=== PATIENT | female | born 1960 | race Caucasian/White ===

== ENCOUNTER 2024-04-29 16:45 | Emergency (ER) | payer OTHER, MEDICARE ==
--- OUTSIDE RECORDS SUMMARY | 2024-04-29 16:49 | XMS REPORT | Continuity of Care Document ---
Author Name Unknown Address [address] [facility] [address] [place] [address] [facility] Address [address] [facility] [address] [place] [address] Care Team Providers Care Network Contract Manager Name Role Phone Tomek_Dewayne Attending Clinician Unavailable MARIN GARAY Attending Clinician Unavailable DR ANIYA ROBLES Attending Clinician Unavailable Tomek_T Admitting Clinician Unavailable MARIN GARAY Admitting Clinician Unavailable DR ANIYA ROBLES Admitting Clinician Unavailable Payers Payer Name Policy Type Policy Number Effective Date Expirati on Date Source [facility] [id number] 2021 00:00:00 Allergies, Adverse Reactions, Alerts Allergy Name Allergy Type Status Severity Reaction(s) Onset Date Inactive Date Treating Clinician Comments Source morphine DA Active [place] 02-01 00:00: 00 [facility] codeine DA Active [place] 02-01 00:00: 00 [facility] Morphine DA Active Unknown [facility] Codeine Allergy to substanc e Active [facility] Morphine Allergy to substanc e [facility] Penicill in v Allergy to substanc e Active [facility] Codeine DA Active Unknown [facility] Penicill ins DA Active Unknown [facility] Social History Smoking Status Start Date Stop Date Source Former Smoker [facility] Medications Ordered Medication Name Filled Medication Name Start Date Stop Date Current Medication? Ordering Clinician Indication Dosage Frequency Signature (SIG) Comments Components Source Advil Advil No Advil [facility] ciprofloxac in 0.3 %-dexametha sone 0.1 % ear drops,suspe nsion INSTILL 4 DROPS INTO AFFECTED EAR(S) BY OTIC ROUTE 2 TIMES PER DAY FOR 7 DAYS ciprofloxac in 0.3 %-dexametha sone 0.1 % ear drops,suspe nsion INSTILL 4 DROPS INTO AFFECTED EAR(S) BY OTIC ROUTE 2 TIMES PER DAY FOR 7 DAYS No ciprofloxa gabi 0.3 %-dexameth asone 0.1 % ear drops,susp ension INSTILL 4 DROPS INTO AFFECTED EAR(S) BY OTIC ROUTE 2 TIMES PER DAY FOR 7 DAYS [facility] Claritin Claritin No Claritin [facility] amiodarone 200 mg tablet Take 1 tablet every day by oral route as directed for 30 days. amiodarone 200 mg tablet Take 1 tablet every day by oral route as directed for 30 days. No 1 Q1D amiodarone 200 mg tablet Take 1 tablet every day by oral route as directed for 30 days. [facility] Eliquis 5 mg tablet Take 1 tablet twice a day by oral route as directed for 30 days. Eliquis 5 mg tablet Take 1 tablet twice a day by oral route as directed for 30 days. No 1 BID Eliquis 5 mg tablet Take 1 tablet twice a day by oral route as directed for 30 days. [facility] omega-3 acid ethyl esters 1 gram capsule Take 1 capsule twice a day by oral route as directed for 30 days. omega-3 acid ethyl esters 1 gram capsule Take 1 capsule twice a day by oral route as directed for 30 days. No 1capsul e(s) BID omega-3 acid ethyl esters 1 gram capsule Take 1 capsule twice a day by oral route as directed for 30 days. [facility] Vital Signs Vital Name Observation Time Observation Value Comments Ioana rowan Body Weight 2024-01-07 00:00:00 2902 [oz_av] [facility] BP Diastolic 2024-01-07 00:00:00 89 mm[Hg] [facility] Height 2024-01-07 00:00:00 64 [in_i] [facility] BMI (Body Mass Index) 2024-01-07 00:00:00 31.1 kg/m2 [facility] BP Systolic 2024-01-07 00:00:00 147 mm[Hg] [facility] BMI (Body Mass Index) 2023-12-05 00:00:00 31.8 kg/m2 [facility] BP Systolic 2023-12-05 00:00:00 155 mm[Hg] [facility] Body Weight 2023-12-05 00:00:00 2968 [oz_av] [facility] BP Diastolic 2023-12-05 00:00:00 100 mm[Hg] [facility] Height 2023-12-05 00:00:00 64 [in_i] [facility] Weight 2022-01-08 15:50:00 66.67 KG Height 2022-01-08 15:50:00 160.02 CM Procedures Procedure Date / Time Performed Performing Clinicia n Source Cholecystectomy [facility] Delivery [facility] Plan of Care Planned Activity Planned Date Details Comments Source Diagnostic Test Pending 2023-12-05 00:00:00 lipid panel, serum [code = lipid panel, serum] [facility] Diagnostic Test Pending 2023-12-05 00:00:00 HbA1c (hemoglobin A1c), blood [code = HbA1c (hemoglobin A1c), blood] [facility] Diagnostic Test Pending 2023-12-05 00:00:00 urinalysis, complete [code = urinalysis, complete] [facility] Diagnostic Test Pending 2023-12-05 00:00:00 TSH + T4, serum [code = TSH + T4, serum] [facility] Diagnostic Test Pending 2023-12-05 00:00:00 CMP, serum or plasma [code = CMP, serum or plasma] [facility] Diagnostic Test Pending 2023-12-05 00:00:00 CBC w/ auto diff [code = CBC w/ auto diff] [facility] Encounters Start Date/Time End Date/Time Encounter Type Admission Type Attending [facility] Care Department Encounter ID Source 2024-02-06 00:00:00 2024-02-06 00:00:00 Outpatient Tomek_T [facility] [id number] [facility] 2024-01-25 00:00:00 2024-01-25 00:00:00 Outpatient Tomek_T [facility] MMG [id number] [facility] 2024-01-07 00:00:00 2024-01-07 00:00:00 Ke Greco MD: [address] [place] [address], [address], [place] [address] , Ph. G [facility] [id number] [facility] 2023-12-28 16:56:00 2023-12-29 11:19:00 observatio n encounter [facility] [id number] [facility] [id number] 2023-12-28 16:56:00 2023-12-29 11:19:00 Inpatient ER MARIN GARAY [facility] [id number] [facility] 2023-12-13 00:00:00 2023-12-13 00:00:00 Outpatient Tomek_T [facility]G MMG [id number] [facility] 2023-12-05 00:00:00 2023-12-05 00:00:00 Outpatient Tomek_T MMG MMG [id number] [facility] 2023-12-05 00:00:00 2023-12-05 00:00:00 LARON Lares: [address], [address], [place] [address] , Ph. [facility] [id number] [facility] 2022-01-08 15:42:00 2022-01-08 16:25:00 Outpatient Js ANIYA ROBLES [facility] [id number] [facility] Results Test Description Test Time Test Comments Results Result Co mments Source [facility] pres [facility] [id number] 09:44:00* Test Item Value Reference Range Interpretation Comme nts culture,urine (test code = culture,urine) early light growth, reincubation required. [facility]12 panel drug [id number] 07:40:00* Test Item Value Reference Range Interpretation Comme nts amphetamines screen urine (t est code = amphetamines screen urine) negative negative barbiturates, urine quant. ( test code = barbiturates, urine quant.) negative negative benzodiazepines screen urine (test code = benzodiazepines screen urine) negative negative cannabinoids (test code = cannabinoids) negative negative cocaine (test code = cocaine) negative negative opiates (test code = opiates) negative negative hydrocodone (test code = hydrocodone) negative negative fentanyl (test code = fentanyl) negative negative phencyclidine (test code = phencyclidine) negative negative methadone (test code = methadone) negative negative propoxyphene (test code = propoxyphene) negative negative oxycodone (test code = oxycodone) negative negative drug screen note (test code = drug screen note) . [facility],urine pres id [id number] 07:34:00* Test Item Value Reference Range Interpretation Comme nts culture,urine (test code = culture,urine) specimen has been received in lab and IS in progress. [facility] [id number] 07:31:00* Test Item Value Reference Range Interpretation Comme nts color, urine (test code = co marie, urine) light yellow appearance, urine (test code = appearance, urine) SL cloudy clear A urine glucose (test code = u rine glucose) negative negative bilirubin, urine (test code = bilirubin, urine) negative negative ketone, urine (test code = ketone, urine) negative negative specific gravity,urine (test code = specific gravity,urine) 1.019 1.003-1.030 blood urine (test code = blo od urine) negative negative pH,urine (test code = pH,urine) 6.500 5-9 protein urine (UA) (test cod e = protein urine (UA)) negative negative urobilinogen, urine (test co de = urobilinogen, urine) normal 0.2-1.0 nitrate, urine (test code = nitrate, urine) negative negative urine leukocyte esterase (te st code = urine leukocyte esterase) 4+ negative A urine culture added? (test c ode = urine culture added?) yes [facility] [id number] 07:31:00* Test Item Value Reference Range Interpretation Comme nts color, urine (test code = color, urine) light yellow appearance, urine (test code = appearance, urine) SL cloudy clear A urine glucose (test code = urine glucose) negative negative bilirubin, urine (test code = bilirubin, urine) negative negative ketone, urine (test code = ketone, urine) negative negative specific gravity,urine (test code = specific gravity,urine) 1.019 1.003-1.030 blood urine (test code = blo od urine) negative negative pH,urine (test code = pH,urine) 6.500 5-9 protein urine (UA) (test cod e = protein urine (UA)) negative negative urobilinogen, urine (test co de = urobilinogen, urine) normal 0.2-1.0 nitrate, urine (test code = nitrate, urine) negative negative urine leukocyte esterase (te st code = urine leukocyte esterase) 4+ negative A RBC, urine (test code = RBC, urine) <1 0-5 WBC, urine (test code = WBC, urine) 20-29 0-5 A epithelial cell (test code = epithelial cell) 1-5 0-5 bacteria, urine (test code = bacteria, urine) small(1+) none detect casts,urine (test code = casts,urine) none detected none detect urine culture added? (test c ode = urine culture added?) yes [facility]12 panel drug [id number] 07:24:00* Test Item Value Reference Range Interpretation Comme nts drug screen note (test code = drug screen note) . [facility] creatinine [id number] 06:23:00* Test Item Value Reference Range Interpretation Comme nts mass creatinine kinase-mb (t est code = mass creatinine kinase-mb) 3.5 NG/mL 0.0-3.6 [facility] high [id number] 06:23:00* Test Item Value Reference Range Interpretation Comme nts troponin T high sens (test c ode = troponin T high sens) 14.3 NG/L 0.0-14.0 H [facility] kinase [Enzymatic activity/volume] in Serum or [id number] 06:20:00* Test Item Value Reference Range Interpretation Comme nts creatine kinase (test code = creatine kinase) 133 U/L 20-180 [facility] metabolic [id number] 06:15:00* Test Item Value Reference Range Interpretation Comme nts glucose (test code = glucose) 115 mg/dL 82-115 blood urea nitrogen (test co de = blood urea nitrogen) 16 mg/dL 8-23 osmolality calculated,serum (test code = osmolality calculated,serum) 280 mOsm/kg 280-300 creatinine (test code = creatinine) 0.85 mg/dL 0.50-0.90 glomerular filtration rate ( test code = glomerular filtration rate) > 60.00 BUN/creatinine ratio (test c ode = BUN/creatinine ratio) 18.8 12.0-20.0 sodium level (test code = so dium level) 139 mmol/L 135-145 potassium level (test code = potassium level) 4.1 mmol/L 3.5-5.2 chloride level (test code = chloride level) 104 mmol/L 98-108 CO2 (test code = CO2) 23 mmol/L 21-32 anion gap (test code = anion gap) 16.1 mEq/L 12.0-20.0 calcium level (test code = calcium level) 9.5 mg/dL 8.8-10.2 [facility] W Auto Differential panel - [id number] 00:00:00 * Test Item Value Reference Range Interpretation Comme nts white blood count (test code = white blood count) 7.4 K/uL 4.0-11.5 red blood count (test code = red blood count) 4.54 M/uL 3.80-5.20 hemoglobin (test code = hemoglobin) 13.0 g/dL 10.5-15.7 hematocrit (test code = hematocrit) 41.2 % 34.0-50.0 mean corpuscular volume (james t code = mean corpuscular volume) 90.7 fL 86.0-100.0 mean corpuscular hemoglobin (test code = mean corpuscular hemoglobin) 28.6 pg 26.2-33.4 mean corpuscular HGB conc (t est code = mean corpuscular HGB conc) 31.6 g/dL 30.0-34.0 red cell distribution width (test code = red cell distribution width) 13.4 % 12.0-15.5 platelet count (test code = platelet count) 307 K/uL 165-450 mean platelet volume (test c ode = mean platelet volume) 10.7 fL 9.4-12.6 neutrophils % (test code = neutrophils %) 51.9 % 44.4-80.1 Ig% (test code = Ig%) 0.1 % 0.0-0.4 lymphocyte% (test code = lymphocyte%) 36.5 % 10.0-50.0 mono % (test code = mono %) 7.7 % 3.6-12.0 eos % (test code = eos %) 2.7 % 0.0-5.4 basophil % (test code = baso odette %) 1.1 % 0.1-1.2 absolute neutrophil count (t est code = absolute neutrophil count) 3.85 K/uL 1.56-6.13 Ig# (test code = Ig#) 0.01 K/uL 0.00-0.03 lymph # (test code = lymph #) 2.71 K/uL 1.18-3.74 mono # (test code = mono #) 0.57 K/uL 0.24-0.86 eos # (test code = eos #) 0.20 K/uL 0.04-0.36 basophil # (test code = baso odette #) 0.08 K/uL 0.01-0.08 NRBC% (test code = NRBC%) 0 /100 WBC 0-0.2 NRBC# (test code = NRBC#) 0 K/uL [facility] creatinine [id number] 23:08:00* Test Item Value Reference Range Interpretation Comme nts mass creatinine kinase-mb (t est code = mass creatinine kinase-mb) 3.9 NG/mL 0.0-3.6 H [facility] T high [id number] 23:08:00* Test Item Value Reference Range Interpretation Comme nts troponin T high sens (test c ode = troponin T high sens) 17.1 NG/L 0.0-14.0 H [facility] creatinine [id number] 23:08:00* Test Item Value Reference Range Interpretation Comme nts mass creatinine kinase-mb (t est code = mass creatinine kinase-mb) 3.9 NG/mL 0.0-3.6 H [facility] high [id number] 23:08:00* Test Item Value Reference Range Interpretation Comme nts troponin T high sens (test c ode = troponin T high sens) 17.1 NG/L 0.0-14.0 H [facility] CenterCreatine kinase [Enzymatic activity/volume] in Serum or [id number] 23:04:00* Test Item Value Reference Range Interpretation Comme nts creatine kinase (test code = creatine kinase) 136 U/L 20-180 [facility] Centerthyroid stimulating hormone [id number] 17:52:00* Test Item Value Reference Range Interpretation Comme nts thyroid stimulating hormone L (test code = thyroid stimulating hormone L) 1.87 uIU/mL 0.36-3.74 [facility] CenterThyroxine (T4) free [Mass/volume] in Serum or Plasma 2023-12-28 17:52:00* Test Item Value Reference Range Interpretation Comme nts free T4 (test code = free T4) 1.02 NG/dL 0.93-1.7 [facility] CenterPhosphate [Mass/volume] in Serum or [id number] 17:41:00* Test Item Value Reference Range Interpretation Comme nts phosphorous level (test code = phosphorous level) 3.9 mg/dL 2.5-4.5 [facility] Center[facility]esium [Mass/volume] in Serum or [id number] 17:41:00* Test Item Value Reference Range Interpretation Comme nts magnesium level (test code = magnesium level) 2.2 mg/dL 1.6-2.4 [facility] Centerlipid [id number] 17:41:00* Test Item Value Reference Range Interpretation Comme nts cholesterol level (test code = cholesterol level) 204 mg/dL 150-200 H triglycerides level (test co de = triglycerides level) 127 mg/dL <150 HDL cholesterol (test code = HDL cholesterol) 42 mg/dL >65 L Cholesterol in LDL [Mass/vol ume] in Serum or Plasma (test code = 2089-1) 147 mg/dL <100 H cholesterol risk ratio (test code = cholesterol risk ratio) 4.857 [facility] Centerlipid [id number] 17:41:00* Test Item Value Reference Range Interpretation Comme nts cholesterol level (test code = cholesterol level) 204 mg/dL 150-200 H triglycerides level (test co de = triglycerides level) 127 mg/dL <150 HDL cholesterol (test code = HDL cholesterol) 42 mg/dL >65 L Cholesterol in LDL [Mass/vol ume] in Serum or Plasma (test code = 2089-1) 147 mg/dL <100 H cholesterol risk ratio (test code = cholesterol risk ratio) 4.857 [facility] Cent[facility]roponin T high [id number] 16:15:00* Test Item Value Reference Range Interpretation Comme nts troponin T high sens (test c ode = troponin T high sens) 19.5 NG/L 0.0-14.0 H [facility]- CT ABD PELVIS W/O [id number] 04:34:00Patient Name: SAJAN HORNE Unit No: [id number] EXAMS: CPT CODE: [id number] CT ABD PELVIS W/O CONT [id number] Reason: LEFT FLANK PAIN EXAM: CT Abdomen and Pelvis Without Contrast EXAM DATE/TIME: 02/01/2019 4:10 AM CLINICAL HISTORY: 58 years old, female; Pain; Abdominal pain; Flank; Left; Prior surgery; Surgery date: 6+ months; Surgery type: Cholecystectomy; Additional info: Left flank pain TECHNIQUE: Imaging protocol: Axial computed tomography images of the abdomen and pelvis without contrast. Coronal and sagittal reformatted images were created and reviewed. Radiation optimization: All CT scans at this facility use at least one of these dose optimization techniques: automated exposure control; mA and/or kV adjustment per patient size (includes targeted exams where dose is matched to clinical indication); or iterative reconstruction. COMPARISON: No relevant prior studies available. FINDINGS:Lower thorax: No acute findings. ABDOMEN: Liver: Normal. No mass. Gallbladder and bile ducts: The patient is status post cholecystectomy. Pancreas: Normal. No ductal dilation. Spleen: Normal. No splen omegaly. Adrenals: Normal. No mass. Kidneys and ureters: There is a 5 mm calculus noted in the midleft ureter with associated moderate left-sided hydronephrosis. There is associated perinephric fatstranding noted. The right kidney is unremarkable. Stomach and bowel: There is diverticulosis with no CT evidence of diverticulitis. Appendix: The appendix is visualized and is unremarkable. PELVIS: Bladder: Unremarkable as visualized. Reproductive: Unremarkable as visualized. ABDOMEN and PELVIS: Intraperitoneal space: Normal. No free air. No significant fluid collection. Bones/joints: No acute fracture. No dislocation. Soft tissues: Small umbilical hernia containing mesenteric fat. Vasculature: Normal. No abdominal aortic aneurysm. [place] NAME: SAJAN HORNE [address] [place] [address] PHYS:CLEMENTINA - To Christianson II [address] : 1960 AGE: 58 SEX: F [place], [place] [address] LOC: D.PER PHONE #: [phone] EXAM DATE: 02/01/2019 STATUS: REG ER FAX #: RAD NO: DC Dt: PAGE 1 Signed Report (CONTINUED) Patient Name: SAJAN HORNE Unit No: [id number] EXAMS: CPT CODE: [id number] CT ABD PELVIS W/O CONT [id number] (Continued) Reason: LEFT FLANK PAIN Lymph nodes: Normal. No enlarged lymph nodes. IMPRESSION: There is a 5 mm calculus noted in the mid left ureter with associated moderate left-sided hydronephrosis. There is associated perinephric fat stranding noted. at 0434 Reported and signed by: Ricky Estevez CC: To Christianson III DO Technologist: Luis Vora RT CT Trscrpt Dt/ (0434)LACY.VR Orig Print D/T: S: 02/01/2019 (0434) CTDI: DLP: [place] NAME: SAJAN HORNE [address] [place] [address] PHYS: To Marquez II [address] : 1960 AGE: 58 SEX: F [place], [place] [address] LOC: D.PER PHONE #: [phone] EXAM DATE: 02/01/2019 STATUS: REG ER FAX #: RAD NO: DC Dt: PAGE 2 Signed ReportCOMPREHENSIVE METABOLIC PANEL 2019-02-01 04:21:00* Test Item Value Reference Range Interpretation Comme nts SODIUM (test code = NA) 142 MMOL/L 133-145 N POTASSIUM (test code = K) 3.8 MMOL/L 3.6-5.2 N CHLORIDE (test code = CL) 104 MMOL/L 100-108 N CARBON DIOXIDE (test code = CO2) 29 MMOL/L 22-32 N GLUCOSE (test code = GLU) 137 MG/DL 65-99 H Results of this assay method may be falsely depressed orelevated if patient is taking sulfasalazine. BLOOD UREA NITROGEN (test code = BUN) 16 MG/DL 6-20 N GLOMERULAR FILTRATION RATE (test code = GFR) 58 51-120 N Reporting units: mL/min/1.73m\S\2 (Modified MDRD Formula) CREATININE (test code = CREAT) 0.98 MG/DL 0.60-1.00 N TOTAL PROTEIN (test code = PROT) 7.3 G/DL 6.4-8.2 N ALBUMIN (test code = ALB) 3.8 G/DL 3.4-5.0 N GLOBULIN (test code = GLOB) 3.5 G/DL 1.5-3.8 N ALBUMIN/GLOBULIN RATIO (test code = A/G) 1.1 1.1-2.2 N CALCIUM (test code = CA) 9.3 MG/DL 8.7-10.5 N BILIRUBIN TOTAL (test code = BILT) 0.2 MG/DL 0.0-1.0 N SGOT/AST (test code = AST) 20 Units/L 15-37 N Results of this assay method may be falsely depressed orelevated if patient is taking sulfasalazine. SGPT/ALT (test code = ALT) 22 Units/L 30-65 L Results of this assay method may be falsely depressed orelevated if patient is taking sulfasalazine. ALKALINE PHOSPHATASE TOTAL (test code = ALKP) 123 Units/L 50-136 N COMPREHENSIVE METABOLIC [id number] 04:18:00* Test Item Value Reference Range Interpretation Comme nts SODIUM (test code = NA) 142 MMOL/L 133-145 N POTASSIUM (test code = K) 3.8 MMOL/L 3.6-5.2 N CHLORIDE (test code = CL) 104 MMOL/L 100-108 N CARBON DIOXIDE (test code = CO2) 29 MMOL/L 22-32 N GLUCOSE (test code = GLU) 137 MG/DL 65-99 H Results of this assay method may be falsely depressed orelevated if patient is taking sulfasalazine. BLOOD UREA NITROGEN (test code = BUN) 16 MG/DL 6-20 N GLOMERULAR FILTRATION RATE (test code = GFR) 58 51-120 N Reporting units: mL/min/1.73m\S\2 (Modified MDRD Formula) CREATININE (test code = CREAT) 0.98 MG/DL 0.60-1.00 N TOTAL PROTEIN (test code = PROT) G/DL 6.4-8.2 ALBUMIN (test code = ALB) G/DL 3.4-5.0 GLOBULIN (test code = GLOB) G/DL 1.5-3.8 ALBUMIN/GLOBULIN RATIO (test code = A/G) 1.1-2.2 CALCIUM (test code = CA) 9.3 MG/DL 8.7-10.5 N BILIRUBIN TOTAL (test code = BILT) MG/DL 0.0-1.0 SGOT/AST (test code = AST) Units/L 15-37 SGPT/ALT (test code = ALT) Units/L 30-65 ALKALINE PHOSPHATASE TOTAL (test code = ALKP) Units/L 50-136 CBC W/AUTO [id number] 04:09:00* Test Item Value Reference Range Interpretation Comme nts WHITE BLOOD CELL (test code = WBC) 13.26 x10 3/uL 4.80-10.80 H Results called t o and read back by TAYO HUTCHINSON RN;0409, 02/01/19, D.LAB.V. RED BLOOD CELL (test code = RBC) 4.74 x10 6/uL 4.2-5.4 N HEMOGLOBIN (test code = HGB) 14.4 G/DL 12.0-16.0 N HEMATOCRIT (test code = HCT) 43.8 % 37-47 N MEAN CELL VOLUME (test code = MCV) 92.4 FL 81-99 N MEAN CELL HGB (test code = MCH) 30.4 PG 27-31 N MEAN CELL HGB CONCENTRATION (test code = MCHC) 32.9 G/DL 33-37 L RED CELL DISTRIBUTION WIDTH (test code = RDW) 14.4 % 11.5-14.5 N PLATELET COUNT (test code = PLT) 276 x10 3/uL 150-450 N MEAN PLATELET VOLUME (test code = MPV) 11.2 FL 7.4-10.4 H NEUTROPHIL % (test code = NT%) 76.0 % 42-86 N LYMPHOCYTE % (test code = LY%) 17.8 % 24-44 L MONOCYTE % (test code = MO%) 4.8 % 0.0-4.0 H EOSINOPHIL % (test code = EO%) 0.9 % 0.0-2.7 N BASOPHIL % (test code = BA%) 0.5 % 0.0-0.5 N NEUTROPHIL # (test code = NT#) 10.09 x10 3/uL 1.8-7.7 H LYMPHOCYTE # (test code = LY#) 2.36 x10 3/uL 1.0-4.8 N MONOCYTE # (test code = MO#) 0.63 x10 3/uL 0.0-0.8 N EOSINOPHIL # (test code = EO#) 0.12 x10 3/uL 0.0-0.5 N BASOPHIL # (test code = BA#) 0.06 x10 3/uL 0.0-0.2 N Notes Date/Time Note Provider Source 2019-02-01 03:42:00 [id number] 2:00 [facility] PROVIDER REPORTREPORT#:[id number] REPORT STATUS: SignedDATE:02/01/19 TIME: 341 PATIENT: SAJAN HORNE UNIT #: [id number]#: [id number] ROOM/BED:AGE: 58 SEX: F PCP PHYS: No Primary or Family PhysicianSERVICE AUTHOR: To Christianson III DO * ALL edits or amendments must be made on the electronic/computer document * HPI-Abd Pain F 40 and Over GeneralInitial Greet Date/Time 02/01/19 034 PresentationChief Complaint Flank pain LHx Obtained From PatientSudden in Onset? YesOnset Occurred Hours agoSymptom Duration Since onsetProgression since Onset UnchangedCaused by No trauma by historyLocation Flank leftQuality SharpRadiationAbdomen lower. Severity: Onset ModerateSeverity: Current ModerateAssociated withDenies: Chills, Dysuria, Melena, Urinary tract symptoms. Exacerbated by NothingRelieved by Nothing Risk-Abd Pain F 40 and Over)( Abdominal Aortic Aneurysm Risk factors reviewed Review of Systems ROS StatementsAll systems rev neg except as marked. Basic Review of SystemsBasic ROS EYES: No redness, ENT: No sore throat, HEM: No bleeding/bruising, SKIN: No rash, NEURO: No change MS, NEURO: No focal deficit, PSYCH: NL thought content Past Medical History - AdultStated Complaint LT SIDE FLANK PAINAllergiesCoded Allergies:morphine (Intermediate, RASH 02/01/19)codeine (Intermediate, VOMITING 02/01/19) Home MedicationsReported MedicationsNo Known Home Medications Review of Nursing Notes Rev avail, and agree Physical Exam Vital SignsVital SignsFirst Documented: Result Date Time Pulse Ox 100 02/02 340 B/P 168/78 02/02 340 B/P Mean 108 02/02 340 O2 Delivery Room air 02/02 340 Temp 36.8 02/02 340 Pulse 69 02/02 340 Resp 18 02/02 340 Last Documented: Result Date Time Pulse Ox 99 02/01 450 B/P 151/73 02/01 450 B/P Mean 99 02/01 450 O2 Delivery Room air 02/01 450 Pulse 70 02/01 450 Resp 18 02/01 450 Temp 36.8 02/02 340 Review of Vital Signs Reviewed Basic Physical ExamBasic PE HEAD: Atraumatic/NC, EYES: PERRL, conj clear, ENT: Membranes moist, NECK: Supple, EXT: No gross abnormality, SKIN: No rashes, warm/dry, NEURO: alert oriented, NEURO: gross movement NL, PSYCH: NL thought content Focused PEGeneral/Const General/Const Awake, Alert, No acute distressMS Head Head Atraumatic, NormocephalicEyes Eyes Atraumatic, PERRL, EOMIEars/Nose/Throat Ears/Nose/Throat Atraumatic, Airway patent, Mucous membranes moist, Pharynx NLResp/Chest Respiratory/Chest Atraumatic, Breath sounds NL, Breath sounds = bilatCardiovascular Cardiovascular Heart rate NL, Regular rhythm, Heart sounds NLAbdomen/GI Abdomen/GI Atraumatic, Soft, Non-tenderMS Back Back Atraumatic, Inspection NL, Full range of motionSkin Skin Warm, DryNeurologic Neurologic Oriented X3, Speech NL, No motor deficits, No sensory deficits, CNII - XII intact Interpretation Diagnostics Lab Results InterpretationResultsLaboratory Tests 02/01/19355:[Embedded Image Not Available]Laboratory Tests: 02/02 356 Chemistry Sodium (133 - 145 MMOL/L) 142 Potassium (3.6 - 5.2 MMOL/L) 3.8 Chloride (100 - 108 MMOL/L) 104 Carbon Dioxide (22 - 32 MMOL/L) 29 BUN (6 - 20 MG/DL) 16 Creatinine (0.60 - 1.00 MG/DL) 0.98 Estimated GFR (MDRD) (51 - 120) 58 Glucose (65 - 99 MG/DL) 137 H Calcium (8.7 - 10.5 MG/DL) 9.3 Total Bilirubin (0.0 - 1.0 MG/DL) 0.2 AST (15 - 37 Units/L) 20 ALT (30 - 65 Units/L) 22 L Alkaline Phosphatase (50 - 136 Units/L) 123 Total Protein (6.4 - 8.2 G/DL) 7.3 Albumin (3.4 - 5.0 G/DL) 3.8 Globulin (1.5 - 3.8 G/DL) 3.5 Albumin/Globulin Ratio (1.1 - 2.2) 1.1 Hematology WBC (4.80 - 10.80 x10 3/uL) 13.26 H RBC (4.2 - 5.4 x10 6/uL) 4.74 Hgb (12.0 - 16.0 G/DL) 14.4 Hct (37 - 47 %) 43.8 MCV (81 - 99 FL) 92.4 MCH (27 - 31 PG) 30.4 MCHC (33 - 37 G/DL) 32.9 L RDW Coeff of Sade (11.5 - 14.5 %) 14.4 Plt Count (150 - 450 x10 3/uL) 276 MPV (7.4 - 10.4 FL) 11.2 H Neut % (Auto) (42 - 86 %) 76.0 Lymph % (Auto) (24 - 44 %) 17.8 L Ferry % (Auto) (0.0 - 4.0 %) 4.8 H Eos % (Auto) (0.0 - 2.7 %) 0.9 Baso % (Auto) (0.0 - 0.5 %) 0.5 Eos # (Auto) (0.0 - 0.5 x10 3/uL) 0.12 Baso # (Auto) (0.0 - 0.2 x10 3/uL) 0.06 Absolute Neuts (auto) (1.8 - 7.7 x10 3/uL) 10.09 H Absolute Lymphs (auto) (1.0 - 4.8 x10 3/uL) 2.36 Absolute Monos (auto) (0.0 - 0.8 x10 3/uL) 0.63 Recent Impressions:CAT SCAN - CT ABD PELVIS W/O CONT 02/01 0400 Report Impression - Status: SIGNED Entered: 02/01/2019 0434 IMPRESSION: There is a 5 mm calculus noted in the mid left ureter with associated moderate left-sided hydronephrosis. There is associated perinephric fat stranding noted. Impression By: [email or web address] - John Gilmore M.D. vRad Re-Evaluation MDM )( Re-Evaluation/Progress #1)( Re-Eval Status Improved ED CourseMedication(s) OrderedMedication(s) Ordered:Central Nervous System Agents Sig/Ghazala Start time Last Medication Dose Route Stop Time Status Admin Ketorolac 30 MG X1ED STA 02/01 0344 DC 02/01 Tromethamine IV 02/01 0345 0400 Electrolytic, Caloric, And Richard Sig/Ghazala Start time Last Medication Dose Route Stop Time Status Admin Sodium Chloride 1,000 ML X1ED STA 02/01 0344 AC 02/01 IV 02/01 0443 0359 Patient Discharge Departure Vital Signs/ConditionVital SignsFirst Documented: Result Date Time Pulse Ox 100 02/01 0340 B/P 168/78 02/01 0340 B/P Mean 108 02/01 0340 O2 Delivery Room air 02/01 0340 Temp 36.8 02/01 0340 Pulse 69 02/01 0340 Resp 18 02/01 0340 Last Documented: Result Date Time Pulse Ox 99 02/01 0450 B/P 151/73 02/01 0450 B/P Mean 99 02/01 0450 O2 Delivery Room air 02/01 0450 Pulse 70 02/01 0450 Resp 18 02/01 0450 Temp 36.8 02/01 0340 All vital signs available at the time of this entry have been reviewed. Clinical ImpressionClinical ImpressionPrimary Impression: Kidney stone Disposition DecisionDischarge )( Discharged to Home Yes )( Time 0442 )( Date 02/01/19 Discharge/Care PlanCounseled Regarding Diagnosis, Prescriptions, Need for follow-upPrescriptionsULTRAM, FLOMAX, CIPRO Discharge NoteI have spoken with the patient and/or caregivers. I have explained the patient'scondition, diagnoses and treatment plan based on the information available to meat this time. I have answered the patient's and/or caregiver's questions and addressed any concerns. The patient and/or caregivers have as good an understanding of the patient's diagnosis, condition and treatment plan as can beexpected at this point. The vital signs have been stable. The patient's condition is stable and appropriate for discharge from the emergency department. The patient will pursue further outpatient evaluation with the primary care physician or other designated or consulting physician as outlined in the discharge instructions. The patient and/or caregivers are agreeable to this planof care and follow-up instructions have been explained in detail. The patient and/or caregivers have received these instructions in written format and have expressed an understanding of the discharge instructions. The patient and/or caregivers are aware that any significant change in condition or worsening of symptoms should prompt an immediate return to this or the closest emergency department or a call to 911. at 2030RPT #:[id number] OF [facility]TTex[facility] department [id number] ilable for patient [id number] [facility]
--- NOTE | 2024-04-29 17:34 | RAD REPORT ---
EXAM DESCRIPTION: CT - Head Brain Wo Cont - 04/29/2024 5:28 pm CLINICAL HISTORY: NUMBNESS Headache, drowsiness COMPARISON: No comparisons TECHNIQUE: All CT scans are performed using dose optimization technique as appropriate and may inclu de automated exposure control or mA/KV adjustment according to patient size. FINDINGS: No intracranial hemorrhage, hydrocephalus or extra-axial fluid collection.No areas of brai n edema or evidence of midline shift. The paranasal sinuses and mastoids are clear. The calvarium is intact. IMPRESSION: No acute intracranial abnormality.
[2024-04-29 18:14] LABS: PT Prothrombin Time 18.1 SECONDS (9.5-12.5); Protime INR 1.67
--- NOTE | 2024-04-29 18:20 | RAD REPORT ---
EXAM DESCRIPTION: RAD - Chest Single View - 04/29/2024 6:12 pm CLINICAL HISTORY: CHEST PAIN Chest pain. COMPARISON: No comparisons FINDINGS: Portable technique limits examination quality. The lungs are grossly clear. The heart is normal in size. No displaced fractures. IMPRESSION: No acute intrathoracic process suspected.
[2024-04-29 18:28] LABS: Anion Gap 7.8 mEq/L (5.0-15.0); BUN Blood Urea Nitrogen 9 mg/dL (7-18); Bicarbonate 27 mEq/L (21-32); Glomerular Filtration Rate 58 ml/min (=/>90); Glucose Level 109 mg/dL (74-106); Potassium 3.8 mEq/L (3.5-5.1); Sodium Level 139 mEq/L (136-145)
[2024-04-29 18:31] LABS: Absolute Basophils 0.1 K/uL (0-0.5); Absolute Eosinophils 0.1 K/uL (0-0.5); Absolute Lymphocytes (CBC) 2.6 K/uL (0.7-4.9); Absolute Monocytes 0.5 K/uL (0.1-1.3); Absolute Neutrophil 5.3 K/uL (1.8-8.0); Basophils % 0.8 % (0-1.3); Eosinophils % 1.3 % (0-4.4); Hematocrit 40.1 % (36.0-45.0); Hemoglobin 13.5 g/dL (12.0-15.0); Lymphocytes % 30.2 % (15.3-44.8); MCH 29.9 pg (27.0-35.0); MCHC 33.7 g/dL (32.0-36.0); MCV 88.7 fL (80-100); MPV 9.8 fL (7.6-11.3); Monocytes % 5.6 % (3.3-12.3); Neutrophils % 62.1 % (41.7-73.7); Platelets 256 thou/uL (152-406); RBC Red Blood Cell Count 4.52 M/uL (3.86-4.86); Red Cell Distribution Width 14.9 % (12.1-15.2); Troponin High Sensitivity < 3.0 pg/mL (<58.9)
--- NOTE | 2024-04-29 18:56 | ER ---
Nurse's Notes [facility] Name: Padmini Santamaria Age: 64 yrs Sex: Female : 1960 Arrival Date: 04/29/2024 Time: 16:45 Bed DX3 Private MD: Diagnosis: Headache Presentation: 04/29 16:54 Chief complaint: Patient states: [place] for 2 days. Pain, tightness to B neck area that ll1 radiates into B arms. R arm and R leg feel asleep. Coronavirus screen: Client denies travel out of the [place] in the last 14 days. At this time, the client does not indicate any symptoms associated with coronavirus-19. Ebola Screen: Patient denies travel to an Ebola-affected area in the 21 days before illness onset. Initial Sepsis Screen: Does the patient meet any 2 criteria? No. Patient's initial sepsis screen is negative. Does the patient have a suspected source of infection? No. Patient's initial sepsis screen is negative. Risk Assessment: Do you want to hurt yourself or someone else? Patient reports no desire to harm self or others. Onset of symptoms was April 28, 2024. 16:54 Method Of Arrival: Ambulatory ll1 16:54 Acuity: SHERRIE 3 ll1 Triage Assessment: 17:01 General: Appears uncomfortable, Behavior is calm, cooperative, appropriate for age. ll1 Pain: Complains of pain in head. Neuro: Reports headache numbness in right arm and right leg. Musculoskeletal: Reports numbness in right arm and right leg. Historical: - Allergies: 16:53 Azithromycin; ll1 16:53 Codeine; ll1 16:53 Morphine; ll1 16:53 PENICILLINS; ll1 17:03 flu vaccine; ll1 - PMHx: 16:53 a-fib; HTN; ll1 - PSHx: 16:53 Cholecystectomy; ; ll1 - Immunization history:: Adult Immunizations up to date. - Infectious Disease History:: Denies. - Social history:: Smoking status: Patient denies any tobacco usage or history of. Screenin:02 [facility] ED Fall Risk Assessment (Adult) History of falling in the last 3 months, iw including since admission No falls in past 3 months (0 pts) Confusion or Disorientation No (0 pts) Intoxicated or Sedated No (0 pts) Impaired Gait No (0 pts) Mobility Assist Device Used No (0 pt) Altered Elimination No (0 pt) Score/Fall Risk Level 0 - 2 = Low Risk Oriented to surroundings, Maintained a safe environment. Abuse screen: Denies threats or abuse. Denies injuries from another. Nutritional screening: No deficits noted. Tuberculosis screening: No symptoms or risk factors identified. Assessment: 18:01 General: Appears in no apparent distress. Behavior is calm, cooperative. Pain: iw Complains of pain in head, neck, back of head and back of neck. Neuro: Level of Consciousness is awake, alert, obeys commands, Oriented to person, place, time, situation, Moves all extremities. Full function. Cardiovascular: Patient's skin is warm and dry. Respiratory: Airway is patent Respiratory effort is even, unlabored, Respiratory pattern is regular. GI: Abdomen is non-distended. Derm: Skin is intact, is healthy with good turgor. Musculoskeletal: Range of motion: intact in all extremities. Vital Signs: 16:54 BP 167 / 93; Pulse 59; Resp 16; Temp 97.6; Pulse Ox 100% ; Weight 79.38 kg; Height 5 ll1 ft. 3 in. ; Pain 8/10; 16:54 Body Mass Index 31.00 (79.38 kg, 160.02 cm) ll1 16:54 Pain Scale: Adult ll1 ED Course: 16:48 Patient arrived in ED. mr 16:56 Triage completed. ll1 16:56 Martha Monroy FNP-C is [facility]. kb 16:59 Dustin Solis MD is Attending Physician. ec2 17:02 Arm band placed on. ll1 17:30 CT Head Brain wo Cont In Process Unspecified. EDMS 17:58 Initial lab(s) drawn, by tn, sent to lab. Inserted saline lock: 20 gauge in right iw antecubital area, using aseptic technique. Blood collected. 18:02 Patient has correct armband on for positive identification. Provided Education on: iw diagnostics . 18:13 XRAY Chest (1 view) In Process Unspecified. EDMS 18:49 Doretha Marrufo, RN is Primary Nurse. iw Administered Medications: 18:03 Not Given (Patient Refused): [id number] mg IVP once iw 18:17 Not Given (Patient Refused): ns 0.9% 1000 ml IV at 1 bolus Per protocol; 1000 mL bolus iw 19:13 Not Given (Patient Refused): Decadron - [id number] mg IVP once iw Medication: 18:02 VIS not applicable for this client. iw Outcome: 18:56 Discharge ordered by . ec2 19:13 Patient left the ED. iw Signatures: Dispatcher [employer] EDMS Martha Monroy, BOX GLUER-C BOX GLUER-CkBethany Woody, Reg Reg mr Doretha Marrufo RN RN iw Lewis, Lynsay, RN RN ll1 Dustin Solis MD MD ec2
--- NOTE | 2024-04-29 18:56 | EDPHYS ---
Physician Documentation [facility] Name: Padmini Santamaria Age: 64 yrs Sex: Female : 1960 Arrival Date: 04/29/2024 Time: 16:45 Bed DX3 Private MD: ED Physician Dustin Solis HPI: 04/29 17:36 This 64 yrs old Female presents to ER via Ambulatory with complaints of ec2 Headache, Body Numbness. 17:36 Patient arrives today for evaluation of headache and body numbness. Patient reports ec2 symptoms onset since yesterday. Complain of a headache radiating down into the neck, complaining of bilateral upper extremity pain and numbness as well as right lower extremity numbness. Denies any falls injuries or trauma. Patient reports history of migraines. . Historical: - Allergies: 16:53 Azithromycin; ll1 16:53 Codeine; ll1 16:53 Morphine; ll1 16:53 PENICILLINS; ll1 17:03 flu vaccine; ll1 - PMHx: 16:53 a-fib; HTN; ll1 - PSHx: 16:53 Cholecystectomy; ; ll1 - Immunization history:: Adult Immunizations up to date. - Infectious Disease History:: Denies. - Social history:: Smoking status: Patient denies any tobacco usage or history of. ROS: 17:36 Constitutional: as per hpi ec2 Exam: 17:36 Constitutional: GEN: NAD Head: atraumatic Eyes: EOMI Ears: External ears are ec2 normal. CV: regular rate LUNGS: no respiratory distress ABD: non-distended SKIN: no evidence of rashes MSK: no evidence of trauma NEURO: moves all extremities equally, cranial nerves II through XII intact, strength intact all 4 extremities, sensation intact throughout all 4 extremities. Vital Signs: 16:54 BP 167 / 93; Pulse 59; Resp 16; Temp 97.6; Pulse Ox 100% ; Weight 79.38 kg; Height 5 ll1 ft. 3 in. ; Pain 8/10; 16:54 Body Mass Index 31.00 (79.38 kg, 160.02 cm) ll1 16:54 Pain Scale: Adult ll1 MDM: 17:32 Patient medically screened. ec2 17:36 Data reviewed: vital signs. ED course: Patient arrives today for evaluation of headache ec2 and body numbness. Examination remarkable for intact neurologic exam. Will obtain lab work, CT scan of the head and treat the patient's symptoms. Differential diagnosis includes complex migraine, nonspecific headache syndrome, doubt intracranial mass or stroke given reassuring neuroexam. 18:47 ED course: EKG obtained, independently reviewed and interpreted me, shows normal sinus ec2 rhythm, rate of 56, no acute ST segment elevations, intervals are nonconcerning.. 18:48 ED course: Metabolic profile shows appropriate electrolytes and renal function. CBC is ec2 reassuring. Troponin is within normal ranges. Chest x-ray shows no acute intrathoracic process. CT scan of the head shows no acute intracranial abnormality. On reassessment patient is well-appearing no acute distress. Presented consistent with headache syndrome. Will discharge home. Return precautions given. . 04/29 17:09 Order name: Basic Metabolic Panel; Complete Time: 18:48 ec2 04/29 17:09 Order name: CBC with Diff; Complete Time: 18:48 ec2 04/29 17:09 Order name: PT-INR; Complete Time: 18:48 ec2 04/29 17:09 Order name: Troponin HS; Complete Time: 18:48 ec2 04/29 17:09 Order name: XRAY Chest (1 view); Complete Time: 18:48 ec2 04/29 17:09 Order name: CT Head Brain wo Cont; Complete Time: 18:48 ec2 04/29 17:09 Order name: EKG - Nurse/Tech; Complete Time: 18:17 ec2 04/29 17:09 Order name: IV Saline Lock; Complete Time: 18:01 ec2 04/29 17:09 Order name: Labs collected and sent; Complete Time: 18:01 ec2 04/29 17:09 Order name: O2 Per Protocol; Complete Time: 18:17 ec2 04/29 17:09 Order name: O2 Sat Monitoring; Complete Time: 18:17 ec2 Administered Medications: 18:03 Not Given (Patient Refused): [id number] mg IVP once iw 18:17 Not Given (Patient Refused): ns 0.9% 1000 ml IV at 1 bolus Per protocol; 1000 mL bolus iw 19:13 Not Given (Patient Refused): Decadron - [id number] mg IVP once iw Disposition Summary: 04/29/24 18:56 Discharge Ordered Notes: Location: Home ec2 Condition: Stable ec2 Diagnosis - Headache ec2 Followup: ec2 - With: Private Physician - When: - Reason: Re-evaluation by your physician Discharge Instructions: - Discharge Summary Sheet ec2 - General Headache Without Cause ec2 Forms: - Work release form iw - Medication Reconciliation Form ec2 - Antibiotic Education ec2 - Prescription Opioid Use ec2 - Patient Portal Instructions ec2 - Leadership Thank You Letter ec2 Signatures: Dispatcher [employer] Grecia Garcias RN RN ll1 Dustin Solis MD MD ec2 Doretha Marrufo RN iw Corrections: (The following items were deleted from the chart) 17:10 17:10 Head Brain Wo Cont+CT.RAD.BRZ ordered. EDWI EDWI 18:50 17:09 Cardiac monitoring ordered. ec2 iw
[2024-04-29 19:29] VITALS: BP 167/93; TEMP 97.6; O2SAT 100
--- NOTE | 2024-05-01 16:20 | EKG ---
Test Date: 2024-04-29 Test Time: 18:12:27 Marinator: TOÑO MEASUREMENT RESULTS: Intervals: Rate: 56 MD: 132 QRSD: 74 QT: 460 QTc: 443 Lindsay: P: MD: 132 QRS: 5 T: 4 INTERPRETIVE STATEMENTS: Sinus bradycardia Otherwise normal ECG Compared to ECG 04/17/2024 01:04:08 No significant changes Electronically Signed On 05-01-24 16:17:07 CDT by Robert Dejesus
== END 2024-04-29 19:13 | disposition home or self-care (01) ==
LOC: ER 16:45
DX: R51.9 Headache, unspecified (principal)
CPT/HCPCS: 36415; 70450; 71045; 80048; 84484; 85025; 85610; 93005; 99283